=== PATIENT | female | born 1945 | race Caucasian/White ===

== ENCOUNTER → 2017-12-17 | Outpatient (CLI) | payer MEDICARE ==
[2017-12-17 13:06] LABS: HCT 41.3 % (34.0-46.0); HGB 13.5 gm/dL (11.4-16.0); MCH 28.2 pg (25.0-35.0); MCHC 32.6 g/dL (31.0-37.0); MCV 86.3 fL (80.0-100.0); Mean Platelet Volume 7.1; Platelet Count 217 k/uL (150-450); RBC 4.79 m/uL (3.80-5.40); RDW 15.8 % (11.5-15.5); WBC 9.4 k/uL (3.8-10.6)
[2017-12-17 13:12] LABS: Anion Gap 8 mmol/L; Blood Urea Nitrogen 14 mg/dL (7-17); Calcium 9.8 mg/dL (8.4-10.2); Carbon Dioxide 33 mmol/L (22-30); Chloride 100 mmol/L (98-107); Glucose 101 mg/dL (74-99); Sodium 141 mmol/L (137-145)
[2017-12-17 13:21] LABS: Potassium 4.4 mmol/L (3.5-5.1)
== END | disposition home or self-care (01) ==
LOC: LABWHC1 12:31
PROVIDERS: ATTEND Internal Medicine Clinical Cardiac Electrophysiology
DX: I47.1 Supraventricular tachycardia (principal)
CPT/HCPCS: 36415; 80048; 85027

== ENCOUNTER 2017-12-21 10:26 | Day surgery (SDC) | payer MEDICARE ==
[2017-12-17 16:16] VITALS: BMI 30.5
[2017-12-21] MEDS: SODIUM CHLORIDE 0.9% 1,000 ML IV SCH (11:00)
[2017-12-21] MEDS ORDERED: fentaNYL (PF) 50 MCG/ML 2 ML AMP ONE (11:35)
[2017-12-21] MEDS ORDERED: MIDAZOLAM 2 MG/2 ML VIAL ONE (11:35)
[2017-12-21] MEDS ORDERED: ISOPROTERENOL 250 MCG/1.25 ML SYR IV ONE (11:35)
[2017-12-21] MEDS ORDERED: PHENYLEPHRINE-0.9% NACL SYG 1 MG/10 ML SYRINGE ONE (11:35)
[2017-12-21] MEDS ORDERED: PROPOFOL 10 MG/ML 20 ML VIAL IV ONE (11:35)
[2017-12-21] MEDS ORDERED: GLYCOPYRROLATE 0.2 MG/ML 2 ML VIAL ONE (11:35)
[2017-12-21] MEDS ORDERED: LIDOCAINE 2% INJ 20 MG/ML SQ ONE (12:25)
[2017-12-21] MEDS ORDERED: LACTATED RINGERS 1,000 ML IV ONE (14:14)
[2017-12-21] MEDS ORDERED: HYDROcodone/APAP 5-325MG 1 EACH TAB PO PRN (14:21)
[2017-12-21] MEDS ORDERED: ACETAMINOPHEN TAB 325 MG TAB PO PRN (14:21)
[2017-12-21] MEDS: ACETAMINOPHEN IV (For NPO) 1,000 MG in EMPTY BAG 1 BAG IVPB ONE ×2 (15:11→17:18)
--- NOTE | 2017-12-21 15:50 | CE ---
CARDIAC ELECTROPHYSIOLOGY REPORT INDICATION FOR PROCEDURE: Recurrent palpitations, symptomatic, documented SVT. PROCEDURE: The patient is brought to the EP lab in a fasting state. Written informed consent was obtained prior to the procedure. The left shoulder area was prepped and draped as per protocol. 1% lidocaine was used for local anesthesia. Venous sheaths were placed in the right and left femoral veins and via these diagnostic catheters were positioned in the heart (high right atrial catheter, his bundle catheter, RV catheter and coronary sinus catheter). Baseline measurements were as follows: Sinus cycle length 900 milliseconds. UT interval 181 milliseconds, QRS 103 milliseconds, QT 457 milliseconds. AH interval 88 milliseconds, HV interval 35 milliseconds. Sinus node recovery times of 600, and 400 milliseconds were 1140 and 1194 milliseconds. Corresponding corrected sinus node recovery times were within normal limits. AV node Wenckebach block 490 milliseconds from the high right atrium and 500 milliseconds from the coronary sinus. VA Wenckebach block 420 milliseconds. Isuprel was started and thereafter SVT was very easily inducible. There was a short septal times noted and with ventricular pacing to entrainment tachycardia, VA AV response was noted with a long post pacing interval. 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 In addition, she had spontaneous episodes of AV krishna reentry that were induced by nonsustained runs of RVOT/VT. ventricular pacing was performed. Right bundle branch block aberrancy was also noted during tachycardia. Later when she was intubated and had further episodes of supraventricular tachycardia with catheter manipulation, her blood pressure dropped significantly. The rest of the procedure was performed under anesthesia because of snoring as well as sleep apnea and inability to maintain stable catheter position. A long sheath was placed and a 4 mm tip ablation catheter was used to map the right heart. The His cloud was tagged. The coronary sinus os was tagged. Slow pathway mapping was performed and RF ablation was performed just anterior to and just below the coronary sinus level. The 1st lesion resulted with the appearance of junctional rhythm. Good temperatures noted in the mid 60s. Following that, a bolus lesions applied but did not result in any further junctional rhythm except a lesion that was just about the origin of the first one. Following that, a full EP study was performed on and off Isuprel, 2 mics, 5 mics as well as wide open. There was no evidence for AV krishna reentry. No further induction of any runs of nonsustained RVOT/VT. The echo beats were noted. Single echo beats were noted. No sustained arrhythmias were noted. No nonsustained arrhythmias noted. Pacing was performed from the ventricle coronary sinus as well as from the high right atrium. At the end of the procedure, all catheters were removed. The patient was transferred back to telemetry. RESULT: Diagnostic EP study revealed AV krishna re-entry as a mechanism of tachycardia. SVT of the slow pathway ablation was performed successfully. 3D mapping was employed. RVOT/VT, nonsustained runs that initiated AV krishna reentry spontaneously also seen prior to ablation, but were not seen on high-dose Isuprel at the end of the procedure. PLAN: Continue metoprolol for now and continue monitor for any nonsustained ventricular tachycardia. MMODL / IJN: [id number] /
[2017-12-21] MEDS: LACTATED RINGERS 1,000 ML IV SCH (17:12)
[2017-12-21] MEDS ORDERED: METOPROLOL SUCCINATE (ER) 50 MG TAB.ER.24H PO SCH (21:00)
[2017-12-21] MEDS ORDERED: ATORVASTATIN 10 MG TAB PO SCH (21:00)
[2017-12-22] MEDS ORDERED: diphenhydrAMINE 50 MG/ML 1 ML VIAL IVP STA (03:48)
[2017-12-22] MEDS: SODIUM CHLORIDE 0.9% 1,000 ML IV SCH (04:55)
[2017-12-22] MEDS: LACTATED RINGERS 1,000 ML IV SCH (04:55)
[2017-12-22 07:57] VITALS: RESP 18
--- NOTE | 2017-12-22 08:28 | P.DS ---
Providers Attending physician: Ricardo Fabian Primary care physician: [facility] Course: Patient is lying comfortably in bed. She has a sore throat. 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 Guillen in 2 weeks Patient Condition at Discharge: Stable Plan - Discharge Summary Discharge Rx Participant: No New Discharge Prescriptions: New RX: Aspirin [Adult Low Dose Aspirin EC] 162 mg PO DAILY #90 tablet. Atorvastatin [Lipitor] 20 mg PO DAILY #90 tablet Lisinopril-Hctz 20-12.5 mg [Zestoretic 20-12.5] 2 tab PO DAILY #90 tab Discontinued Aspirin [Adult Low Dose Aspirin EC] 81 mg PO DAILY Enalapril [Vasotec] 10 mg PO HS Simvastatin [Zocor] 20 mg PO HS NIFEdipine XL [Procardia Xl] 30 mg PO HS Clopidogrel [Plavix] 75 mg PO PC-LUNCH No Action RX: Chromium Picolinate 800 mcg PO DAILY Acetaminophen [Tylenol Extra Strength] 500 mg PO DAILY Ubidecarenone [Co Q-10] 200 mg PO DAILY L.acidoph,Paracasei, B.lactis [Probiotic] 1 each PO BID Cinnamon Bark [Cinnamon] 1,000 mg PO BID Cholecalciferol [Vitamin D3] 3,000 unit PO DAILY Ascorbic Acid [Vitamin C] 500 mg PO BID RX: Alpha Lipoic Acid 600 mg PO DAILY Multivitamins, Thera [Multivitamin (formulary)] 1 tab PO DAILY Flaxseed Oil [Delia-3 Flaxseed Oil] 1,000 mg PO DAILY Calcium Citrate/Vitamin D3 [Calcitrate + Vit D Caplet] 1 each PO DAILY Delia-3/Dha/Epa/Fish Oil [Fish Oil 500 mg Softgel] 1 each PO DAILY Hydrocodone/Acetaminophen [Hydrocodon-Acetaminophn 10-325] 1 each PO TID Metoprolol Succinate [Toprol XL] 50 mg PO HS Enalapril/Hydrochlorothiazide [Vaseretic 10-25 mg] 1 each PO DAILY Gabapentin [Neurontin] 400 mg PO BID Lidocaine HCl [Aspercreme] 1 applic TOPICAL DAILY PRN PRN Reason: Pain Hyaluronic Acid 1 tab PO BID Benadryl (Unknown Dose) 1 - 2 tab PO DAILY PRN PRN Reason: seasonal allergies Glucosam/Clem-Msm1/C/Fareed/Bosw [Glucosamine-Chondroitin Tablet] 1 each PO BID Discharge Medication List Acetaminophen [Tylenol Extra Strength] 500 mg PO DAILY 12/17/17 [History] Ascorbic Acid [Vitamin C] 500 mg PO BID 12/17/17 [History] Benadryl (Unknown Dose) 1 - 2 tab PO DAILY PRN 12/17/17 [History] Calcium Citrate/Vitamin D3 [Calcitrate + Vit D Caplet] 1 each PO DAILY 12/17/17 [History] Cholecalciferol [Vitamin D3] 3,000 unit PO DAILY 12/17/17 [History] Cinnamon Bark [Cinnamon] 1,000 mg PO BID 12/17/17 [History] Enalapril/Hydrochlorothiazide [Vaseretic 10-25 mg] 1 each PO DAILY 12/17/17 [ History] Flaxseed Oil [Delia-3 Flaxseed Oil] 1,000 mg PO DAILY 12/17/17 [History] Gabapentin [Neurontin] 400 mg PO BID 12/17/17 [History] Glucosam/Clem-Msm1/C/Fareed/Bosw [Glucosamine-Chondroitin Tablet] 1 each PO BID [History] Hyaluronic Acid 1 tab PO BID 12/17/17 [History] Hydrocodone/Acetaminophen [Hydrocodon-Acetaminophn 10-325] 1 each PO TID [History] L.acidoph,Paracasei, B.lactis [Probiotic] 1 each PO BID 12/17/17 [History] Lidocaine HCl [Aspercreme] 1 applic TOPICAL DAILY PRN 12/17/17 [History] Metoprolol Succinate [Toprol XL] 50 mg PO HS 12/17/17 [History] Multivitamins, Thera [Multivitamin (formulary)] 1 tab PO DAILY 12/17/17 [History ] Delia-3/Dha/Epa/Fish Oil [Fish Oil 500 mg Softgel] 1 each PO DAILY 12/17/17 [ History] RX: Alpha Lipoic Acid 600 mg PO DAILY 12/17/17 [History] RX: Chromium Picolinate 800 mcg PO DAILY 12/17/17 [History] Ubidecarenone [Co Q-10] 200 mg PO DAILY 12/17/17 [History] Atorvastatin [Lipitor] 20 mg PO DAILY #90 tablet 12/21/17 [Rx] Lisinopril-Hctz 20-12.5 mg [Zestoretic 20-12.5] 2 tab PO DAILY #90 tab 12/21/17 [Rx] RX: Aspirin [Adult Low Dose Aspirin EC] 162 mg PO DAILY #90 tablet. 12/21/17 [ Rx] Follow up Appointment(s)/Referral(s): Ricardo Fabian MD [STAFF PHYSICIAN] - 2 Weeks Gerard Askew MD [Primary Care Provider] - 1 Week Activity/Diet/Wound Care/Special Instructions: Post EP study - Ablation instructions 1. Keep access sites dry for 2 days. 2. No heavy lifting or straining for 2 days. 3. Avoid bending the hips repeatedly for 2 days. 4. You may go up and down stairs slowly Call if the following is noted 1. Bleeding, increasing swelling or pain at the access sites. 2. Increasing chest discomfort, especially upon taking a deep breath. 3. Increasing shortness of breath, at rest or with exertion. 4. Undue cough / phlegm 5. Difficulty or pain while swallowing. 6. Pain or change in color in the extremities. 7. Fever, chills, rigors. 8. Increasing headache or neurologic symptoms. 9. Dizziness, fainting, palpitations Medications to BE discontinued Plavix Procardia XL Enalapril Enalapril and hydrochlorothiazide Simvastatin New medications instead of the above 2 baby aspirins a day, 81 mg each tablet, total 162 mg daily Lisinopril HCTZ 20/12.5 mg, take 2 tablets per day Atorvastatin 20 mg by mouth daily Discharge Disposition: HOME SELF-CARE
[2017-12-22] MEDS ORDERED: LISINOPRIL-HCTZ 20-12.5 MG 1 EACH TAB PO SCH (09:00)
[2017-12-22] MEDS ORDERED: ASPIRIN 81 MG PO SCH (09:00)
[2017-12-22 11:25] VITALS: BP 128/66; PULSE 70; TEMP 98.6
== END 2017-12-22 13:10 | disposition home or self-care (01) ==
LOC: CATHEP 10:26 → 3OBS 14:11 → CATHEP 12-22 13:10
PROVIDERS: ATTEND Internal Medicine Clinical Cardiac Electrophysiology
DX: I47.1 Supraventricular tachycardia (principal); I25.10 Atherosclerotic heart disease of native coronary artery without angina pectoris; I10 Essential (primary) hypertension; Z95.5 Presence of coronary angioplasty implant and graft; E78.5 Hyperlipidemia, unspecified; Z82.49 Family history of ischemic heart disease and other diseases of the circulatory system; G51.0 Bell's palsy; M79.7 Fibromyalgia; Z79.02 Long term (current) use of antithrombotics/antiplatelets; Z79.82 Long term (current) use of aspirin; Z79.899 Other long term (current) drug therapy; Z88.8 Allergy status to other drugs, medicaments and biological substances
CPT/HCPCS: 93623; 93613; 93653; C1894; C1769 ×2; C1730 ×2; C1732; C1893; J2001; J1200; J0131

== ENCOUNTER 2020-09-07 23:35 | Observation (INO) | payer MEDICARE ==
[2020-09-08 00:22] LABS: Basophils # (A) 0.1 k/uL (0-0.2); Basophils % (A) 1 %; Eosinophils # (A) 0.2 k/uL (0-0.7); Eosinophils % (A) 2 %; HCT 44.3 % (34.0-46.0); HGB 14.1 gm/dL (11.4-16.0); Lymphocytes # (A) 1.5 k/uL (1.0-4.8); Lymphocytes % (A) 12 %; MCH 26.7 pg (25.0-35.0); MCHC 31.7 g/dL (31.0-37.0); MCV 84.2 fL (80.0-100.0); Monocytes # (A) 0.8 k/uL (0-1.0); Monocytes % (A) 6 %; Neutrophils # (A) 9.7 k/uL (1.3-7.7); Neutrophils % (A) 78 %; Platelet Count 217 k/uL (150-450); RBC 5.27 m/uL (3.80-5.40); RDW 14.7 % (11.5-15.5); WBC 12.5 k/uL (3.8-10.6)
--- NOTE | 2020-09-08 00:27 | ED ---
Chest Pain HPI - General Chief Complaint: Chest Pain Stated Complaint: chest pain Time Seen by Provider: 09/07/20 23:36 Source: patient, EMS Mode of arrival: EMS Limitations: no limitations - History of Present Illness Initial Comments: This patient is a 74-year-old woman who presents to be evaluated for substernal chest pain that started tonight after a Halloween event. Patient states that when the pain did not improve she felt she should be evaluated here. She does have history of previous stent placement in 2005 and then she had an ablation performed last year. Patient denies anginal type symptoms, including no diaphoresis, dyspnea, nausea or vomiting. MD Complaint: chest pain -: hour(s) Onset: during rest Pain Location: substernal Pain Radiation: none Severity: moderate Quality: aching Consistency: constant Improves With: nothing Worsens With: nothing Treatments Prior to Arrival: none - Related Data Home Medications Medication Instructions Recorded Confirmed Acetaminophen [Tylenol Extra 500 mg PO TID 12/17/17 09/08/20 Strength] Ascorbic Acid [Vitamin C] 500 mg PO BID 12/17/17 09/08/20 Cholecalciferol [Vitamin D3 (25 1,000 unit PO BID 12/17/17 09/08/20 Mcg = 1000 Iu)] Cinnamon Bark [Cinnamon] 500 mg PO BID 12/17/17 09/08/20 Flaxseed Oil [[place]-3 Flaxseed Oil] 1,000 mg PO DAILY 12/17/17 09/08/20 Hydrocodone/Acetaminophen 1 tab PO QID 12/17/17 09/08/20 [Hydrocodone/Acetaminophen 10-325] L.acidoph,Paracasei, B.lactis 1 cap PO BID 12/17/17 09/08/20 [Probiotic] Metoprolol Succinate [Toprol XL] 50 mg PO DAILY 12/17/17 09/08/20 Multivitamins, Thera [Multivitamin 1 tab PO DAILY 12/17/17 09/08/20 (formulary)] [place]-3/Dha/Epa/Fish Oil [Fish Oil 1 cap PO DAILY 12/17/17 09/08/20 500 mg Softgel] Ubidecarenone [Co Q-10] 200 mg PO DAILY 12/17/17 09/08/20 Aspirin [Adult Low Dose Aspirin EC] 81 mg PO BID 09/08/20 09/08/20 Cyclobenzaprine [Flexeril] 10 mg PO HS 09/08/20 09/08/20 DULoxetine HCL [Cymbalta] 20 mg PO BID 09/08/20 09/08/20 Gabapentin 600 mg PO TID 09/08/20 09/08/20 Hydroxychloroquine Sulfate 200 mg PO BID 09/08/20 09/08/20 [Plaquenil] Trolamine Salicylate/Aloe Vera 1 applic TOPICAL DAILY PRN 09/08/20 09/08/20 [Aspercreme 10% Cream] diphenhydrAMINE [Benadryl] 25 - 50 mg PO HS PRN 09/08/20 09/08/20 Previous Rx's Medication Instructions Recorded Atorvastatin [Lipitor] 40 mg PO HS #30 tab 09/10/20 lisinopriL [Zestril] 5 mg PO HS #30 tab 09/10/20 Allergies Allergy/AdvReac Type Severity Reaction Status Date / Time adhesive tape Allergy Rash/Hives Verified 09/08/20 08:21 cilostazol [From Pletal] Allergy heart Verified 09/08/20 08:21 pounding etodolac Allergy Rash/Hives, Verified 09/08/20 08:21 leg and foot swelling omeprazole [From Prilosec] Allergy mouth sores Verified 09/08/20 08:21 temazepam [From Restoril] Allergy mouth sores Verified 09/08/20 08:21 bentyl dicyclomine Allergy confusion Uncoded 09/07/20 23:46 and balance Review of Systems ROS Statement: Those systems with pertinent positive or pertinent negative responses have been documented in the HPI. ROS Other: All systems not noted in ROS Statement are negative. Constitutional: Denies: fever, chills Respiratory: Denies: cough, dyspnea Cardiovascular: Reports: as per HPI, chest pain. Denies: palpitations, orthopnea, edema, syncope Gastrointestinal: Denies: abdominal pain, nausea, vomiting, diarrhea Genitourinary: Denies: dysuria, hematuria Musculoskeletal: Denies: back pain Skin: Denies: rash Neurological: Denies: headache, weakness, numbness EKG Findings - EKG Comments: EKG Findings:: Possible old septal infarct. - EKG Results: EKG: sinus rhythm (Rate 100 bpm) - Blocks, [place], Hypertrophy, ST Abn: QRS axis and voltage: left axis deviation (-30 to -90) Chamber hypertrophy or enlargement: left ventricular hypertrophy or enlargement (LVE) Past Medical History Past Medical History: Hypertension, Myocardial Infarction ([place]) Additional Past Medical History / Comment(s): melanoma. hypercholestremia. kidney stones. ablation. Lupus erythematosus. restless leg syndrome. Diverticulitis. ovarian cysts. History of Any Multi-Drug Resistant Organisms: None Reported Past Surgical History: Heart Catheterization With Stent, Hysterectomy, Orthopedic Surgery Additional Past Surgical History / Comment(s): colonoscopy Past Psychological History: No Psychological Hx Reported Smoking Status: Never smoker Past Alcohol Use History: None Reported Past Drug Use History: None Reported General Exam Limitations: no limitations General appearance: alert, in no apparent distress Head exam: Present: atraumatic, normocephalic Eye exam: Present: normal appearance. Absent: scleral icterus, conjunctival injection ENT exam: Present: normal oropharynx Neck exam: Present: normal inspection Respiratory exam: Present: normal lung sounds bilaterally. Absent: respiratory distress, wheezes, rales, rhonchi, stridor Cardiovascular Exam: Present: regular rate, normal rhythm, normal heart sounds. Absent: systolic murmur, diastolic murmur, rubs, gallop GI/Abdominal exam: Present: soft. Absent: distended, tenderness, guarding, rebound, rigid, mass Extremities exam: Present: normal inspection, normal capillary refill. Absent: pedal edema, calf tenderness Back exam: Present: normal inspection. Absent: CVA tenderness (R), CVA tenderness (L) Neurological exam: Present: alert Skin exam: Present: warm, dry, intact, normal color Course Vital Signs 09/07/20 09/07/20 09/08/20 23:37 23:40 01:00 Temperature 98.2 F Pulse Rate 107 H 93 Pulse Rate [ 105 H [place] Man ] Respiratory 20 19 Rate Blood Pressure 134/90 128/84 O2 Sat by Pulse 96 96 Oximetry 09/08/20 09/08/20 02:00 03:07 Temperature 98.1 F Pulse Rate 91 91 Pulse Rate [ [place] Man ] Respiratory 19 19 Rate Blood Pressure 130/84 126/83 O2 Sat by Pulse 96 95 Oximetry Critical Care Time Critical Care Time: Yes (35 minutes) Disposition Clinical Impression: Chest pain, Elevated troponin I level Disposition: ADMITTED IP TO THIS HOSP Condition: Stable
[2020-09-08 00:32] LABS: Albumin 4.3 g/dL (3.5-5.0); Calcium 9.5 mg/dL (8.4-10.2); Magnesium 1.8 mg/dL (1.6-2.3); Potassium 4.1 mmol/L (3.5-5.1); Total Bilirubin 0.5 mg/dL (0.2-1.3); Total Protein 6.9 g/dL (6.3-8.2)
[2020-09-08 00:38] LABS: D-Dimer 0.49 mg/L FEU (<0.60); Partial Thromboplastin Time 24.3 sec (22.0-30.0)
--- NOTE | 2020-09-08 00:40 | XR ---
EXAM: XR Chest, 2 Views CLINICAL HISTORY: ITS.REASON XR Reason: Chest Pain TECHNIQUE: Frontal and lateral views of the chest. COMPARISON: None. FINDINGS: Lungs: Hyperexpanded lungs with flattened hemidiaphragms suggestive of COPD. Pleural space: Unremarkable. No pneumothorax. Heart: Unremarkable. No cardiomegaly. Mediastinum: Unremarkable. Bones/joints: Dextroscoliosis of the thoracic spine. Severe degenerative change in the thoracic spine. Vasculature: Atherosclerotic calcification of the thoracic aorta. IMPRESSION: 1. No acute cardiopulmonary abnormality. 2. Hyperexpanded lungs with flattened hemidiaphragms suggestive of COPD.
[2020-09-08] MEDS ORDERED: HEPARIN SODIUM,PORCINE 5,000 UNIT/ML 1 ML VIAL IV ONE (01:22)
[2020-09-08] MEDS ORDERED: HEPARIN SODIUM,PORCINE 5,000 UNIT/ML 1 ML VIAL IV PRN (01:22)
[2020-09-08] MEDS ORDERED: ASPIRIN 81 MG PO STA (01:38)
[2020-09-08] MEDS ORDERED: HYDROmorphone 0.5 MG/0.5 ML SYRINGE IVP STA ×2 (01:40→10:05)
[2020-09-08] MEDS ORDERED: METOPROLOL TARTRATE 12.5 MG TAB PO STA (01:54)
[2020-09-08 02:04] LABS: Basophils # (A) 0.1 k/uL (0-0.2); Basophils % (A) 1 %; Eosinophils # (A) 0.2 k/uL (0-0.7); Eosinophils % (A) 2 %; HCT 41.8 % (34.0-46.0); HGB 13.5 gm/dL (11.4-16.0); Lymphocytes # (A) 1.5 k/uL (1.0-4.8); Lymphocytes % (A) 14 %; MCH 27.2 pg (25.0-35.0); MCHC 32.2 g/dL (31.0-37.0); MCV 84.3 fL (80.0-100.0); Mean Platelet Volume 7.3; Monocytes # (A) 0.7 k/uL (0-1.0); Monocytes % (A) 7 %; Neutrophils # (A) 7.6 k/uL (1.3-7.7); Neutrophils % (A) 74 %; Platelet Count 187 k/uL (150-450); RBC 4.96 m/uL (3.80-5.40); RDW 14.7 % (11.5-15.5); WBC 10.2 k/uL (3.8-10.6)
[2020-09-08 02:16] LABS: Partial Thromboplastin Time 24.6 sec (22.0-30.0); Prothrombin Time 10.5 sec (9.0-12.0)
[2020-09-08] MEDS: HEPARIN SOD,PORK IN 0.45% NACL 25,000 UNIT in 0.45% NACL 1 250ML.BAG IV SCH (02:34)
[2020-09-08] MEDS: SODIUM CHLORIDE 0.9% 1,000 ML IV SCH ×4 (02:39→22:43)
[2020-09-08] MEDS ORDERED: ACETAMINOPHEN TAB 325 MG TAB PO PRN (02:57)
[2020-09-08] MEDS: HYDROcodone/APAP 10-325MG 1 EACH TAB PO PRN ×2 (05:58→15:17)
[2020-09-08] MEDS: NITROGLYCERIN SL TABS 0.4 MG TAB SUBLINGUAL PRN ×5 (06:47→10:00)
[2020-09-08] MEDS ORDERED: ACETAMINOPHEN TAB 500 MG TAB PO SCH (09:00)
[2020-09-08] MEDS ORDERED: HYDROCHLOROTHIAZIDE PO SCH (09:00)
[2020-09-08] MEDS ORDERED: ATORVASTATIN 20 MG TAB PO SCH (09:00)
[2020-09-08] MEDS ORDERED: NON FORMULARY DRUG (Ubidecarenone [Co Q-10] 100 MG Capsule) PO SCH (09:00)
[2020-09-08] MEDS ORDERED: LISINOPRIL-HCTZ 20-12.5 MG 1 EACH TAB PO SCH (09:00)
[2020-09-08] MEDS ORDERED: ENALAPRIL PO SCH (09:00)
[2020-09-08] MEDS ORDERED: GABAPENTIN 400 MG CAP PO SCH (09:00)
[2020-09-08] MEDS: MULTIVITAMINS, THERA 1 EACH TAB PO SCH (09:44)
[2020-09-08] MEDS: CALCIUM CARB-VIT D 500MG-200UN 1 EACH TAB PO SCH (09:44)
[2020-09-08] MEDS ORDERED: ONDANSETRON 4 MG/2 ML VIAL IVP PRN (10:06)
[2020-09-08] MEDS ORDERED: ONDANSETRON 4 MG/2 ML VIAL ONE (10:08)
[2020-09-08] MEDS ORDERED: ALPRAZolam 0.5 MG TAB PO PRN (10:10)
[2020-09-08] MEDS ORDERED: ALPRAZolam 0.25 MG TAB PO PRN (10:10)
[2020-09-08] MEDS ORDERED: NITROGLYCERIN SL TABS 0.4 MG TAB SUBLINGUAL PRN (10:10)
[2020-09-08] MEDS ORDERED: ASPIRIN 325 MG TAB PO STA (10:10)
[2020-09-08] MEDS ORDERED: ATORVASTATIN 80 MG TAB PO STA (10:10)
[2020-09-08] MEDS ORDERED: SODIUM CHLORIDE 0.9% 1,000 ML in EMPTY BAG 1 BAG IV ONE (10:10)
--- NOTE | 2020-09-08 10:35 | P.CRDCN ---
History of Present Illness Consult date: 09/08/20 Reason for Consult (text): Mid-sternal chest pain Consult reason: chest pain Chief complaint: Chest Pain History of present illness: HISTORY OF PRESENT ILLNESS AND PLAN: This is a 74-year-old female with history of obesity, lifelong second hand smoke exposure, bilateral total knee replacements, RIGHT arms surgery, kidney stones, ovarian cyst, melanoma, fibro-myalgia, lupus, hypertension, hyperlipidemia, MA, CAD status post PCI to left circumflex in 01/05/2006 and ablation for /SVT with Dr. Fabian in in 12/2017. Patient presents to ER with complaints of mid-sternal chest pain/pressure 05/24, after she has been out with her family for trunk or treat Halloween activities. Upon return home while driving patient states midsternal chest pressure started and continued overnight into this morning during a.m. examination. Pt current chest pain level 3/10. Troponin levels elevated x3 at 1.260, 1.890 and 2.610. Patient follows with Dr. Fabian in in office. EKG shows sinus rhythm/sinus tachycardia with LVH, heart rate 100. Vital signs stable. Patient states 98% on 2 L NC. Patient is completely alert and oriented and in no acute distress. Patient does have history of left circumflex PCI in 01/05/2006 at [facility], patient continues to carry PCI/stenting card. Patient has no smoking history. No diabetes. Pt did have lifelong second hand smoke exposure living with and daughter who smoke. IV heparin continues. Pt remains NPO. SIGNIFICANT PAST MEDICAL HISTORY: Obesity, second hand smoke exposure, bilateral knee replacements, kidney stones, ovarian cyst, melanoma, fibromyalgia, lupus, hypertension, hyperlipidemia, CAD status post PCI to left circumflex in 01/05/2006 and ablation for SVT with Dr. Fabian in in 12/2017. PAST SURGICAL HISTORY: See list. EKG = SR/ST with LVH, HR 100. Troponins positive x 3 - 1.260, 1.890, 2.610 SIGNIFICANT LABORATORY VALUES: BUN 18, CR 0.84 Chest x-ray 09/08/2020 = No acute process. COPD. Most recent echo = None recently. Most recent stress testing = None recently. REVIEW OF SYSTEMS: CONSTITUTIONAL: Denies fever. Denies chills. EYES: Denies blurred vision. Denies blurred vision or vision changes. Denies eye pain. EARS, NOSE, MOUTH & THROAT: Denies headache. Denies sore throat. Denies ear pain Denies hemoptysis. CARDIOVASCULAR: Complains of constant aching midsternal chest pain with associated shortness of breath. Denies orthopnea. Denies PND. Denies palpitation s. RESPIRATORY: Denies cough. Denies shortness of breath. GASTROINTESTINAL: Denies abdominal pain or distention. Denies diarrhea. Denies constipation. Denies nausea. Denies vomiting. MUSCULOSKELETAL: Complains of myalgias. INTEGUMENTARY: Denies pruitis. Denies rash. ENDOCRINE: Complains of fatigue. Denies weight change. Denies polydipsia. Denies polyurina Denies heat/cold intolerance. GENITOURINARY: Denies burning, hematuria or urgency with micturation. HEMATOLOGIC: Denies history of anemia. Denies bleeding. NEUROLOGIC: Denies numbness. Denies tingling. Denies weakness. PSYCHIATRIC: Denies anxiety. Denies depression. PHYSICAL EXAM: GENERAL: Obese, well developed, no acute distress. HEENT: Head is atraumatic, normocephalic. Pupils are equal, round. Extra ocular movements intact. Mucous membranes moist. Neck supple. No JVD. No carotid bruit. No thyromegaly. LUNGS: Clear to auscultation. No wheezes, rales or rhonchi. No chest wall tenderness on palpation or with deep breathing. HEART: Regular rate and rhythm, no rubs or gallops. S1 and S2 heard. No murmur. ABDOMEN: Abdominal exam, WNL. Bowel sounds x4 quads. Soft, non-tender, without masses, organomegaly, or abdominal aorta enlargement. EXTREMITIES/VASCULAR: Extremities have easily palpable radial, femoral, dorsalis pedis and posterior tibial pulses. No cyanosis, calf tenderness. No BLE edema. NEUROLOGIC: Patient is awake, alert and oriented x3. No focal neurologic abnormalities. FINAL IMPRESSION: 1. Chest pain 2. Elevated Troponin 3. CAD s/p PCI to LCX 01/05/2006 4. HTN 5. Hyperlipdemia PLAN: Pt to remain NPO. Patient to LEFT heart cath vie RIGHT radial approach this AM. Pt explained all benefits, risks, options and rationale for the procedure. Pt agrees to proceed. Cautious IV fluid administration and blood pressure control advised. Nurse Practitioner note has been reviewed by the Physician. Signing provider agrees with the documented findings, assessment and plan of care. Past Medical History Past Medical History: Hypertension, Myocardial Infarction (MA) Additional Past Medical History / Comment(s): melanoma. hypercholestremia. kidney stones. ablation. Lupus erythematosus. restless leg syndrome. Diverticulitis. ovarian cysts. Last Myocardial Infarction Date:: 2005 History of Any Multi-Drug Resistant Organisms: None Reported Past Surgical History: Heart Catheterization With Stent, Hysterectomy, Orthopedic Surgery Additional Past Surgical History / Comment(s): colonoscopy Date of Last Stent Placement:: 2005 Past Psychological History: No Psychological Hx Reported Smoking Status: Never smoker Past Alcohol Use History: None Reported Past Drug Use History: None Reported Medications and Allergies Home Medications Medication Instructions Recorded Confirmed Type Acetaminophen [Tylenol Extra 500 mg PO TID 12/17/17 09/08/20 History Strength] Ascorbic Acid [Vitamin C] 500 mg PO BID 12/17/17 09/08/20 History Cholecalciferol [Vitamin D3] 1,000 unit PO BID 12/17/17 09/08/20 History Cinnamon Bark [Cinnamon] 500 mg PO BID 12/17/17 09/08/20 History Flaxseed Oil [[place]-3 Flaxseed Oil] 1,000 mg PO DAILY 12/17/17 09/08/20 History Hydrocodone/Acetaminophen 1 tab PO QID 12/17/17 09/08/20 History [Hydrocodon-Acetaminophn 10-325] L.acidoph,Paracasei, B.lactis 1 cap PO BID 12/17/17 09/08/20 History [Probiotic] Metoprolol Succinate [Toprol XL] 50 mg PO DAILY 12/17/17 09/08/20 History Multivitamins, Thera [Multivitamin 1 tab PO DAILY 12/17/17 09/08/20 History (formulary)] [place]-3/Dha/Epa/Fish Oil [Fish Oil 1 cap PO DAILY 12/17/17 09/08/20 History 500 mg Softgel] Ubidecarenone [Co Q-10] 200 mg PO DAILY 12/17/17 09/08/20 History Aspirin [Adult Low Dose Aspirin EC] 81 mg PO BID 09/08/20 09/08/20 History Atorvastatin [Lipitor] 20 mg PO HS 09/08/20 09/08/20 History Cyclobenzaprine [Flexeril] 10 mg PO HS 09/08/20 09/08/20 History DULoxetine HCL [Cymbalta] 20 mg PO BID 09/08/20 09/08/20 History Gabapentin 600 mg PO TID 09/08/20 09/08/20 History Hydroxychloroquine Sulfate 200 mg PO BID 09/08/20 09/08/20 History [Plaquenil] Irbesartan 300 mg PO DAILY 09/08/20 09/08/20 History Triamterene-Hctz 37.5-25Mg 1 cap PO DAILY 09/08/20 09/08/20 History [Dyazide 37.5-25 Capsule] Trolamine Salicylate/Aloe Vera 1 applic TOPICAL DAILY PRN 09/08/20 09/08/20 History [Aspercreme 10% Cream] diphenhydrAMINE [Benadryl] 25 - 50 mg PO HS PRN 09/08/20 09/08/20 History Allergies Allergy/AdvReac Type Severity Reaction Status Date / Time adhesive tape Allergy Rash/Hives Verified 09/08/20 08:21 cilostazol [From Pletal] Allergy heart Verified 09/08/20 08:21 pounding etodolac Allergy Rash/Hives, Verified 09/08/20 08:21 leg and foot swelling omeprazole [From Prilosec] Allergy mouth sores Verified 09/08/20 08:21 temazepam [From Restoril] Allergy mouth sores Verified 09/08/20 08:21 bentyl dicyclomine Allergy confusion Uncoded 09/07/20 23:46 and balance Physical Exam Vitals: Vital Signs Temp Pulse Pulse Resp BP BP Pulse Ox 09/08/20 06:59 88 113/67 95 09/08/20 06:52 89 18 114/65 94 L 09/08/20 06:48 87 18 118/71 94 L 09/08/20 04:53 98.4 F 99 18 133/82 97 09/08/20 03:27 98.4 F 99 18 133/82 97 09/08/20 03:07 98.1 F 91 19 126/83 95 09/08/20 02:00 91 19 130/84 96 09/08/20 01:00 93 19 128/84 96 10/24/20 23:40 105 H 09/07/20 23:37 98.2 F 107 H 20 134/90 96 Intake and Output 09/07/20 09/08/20 09/08/20 22:59 06:59 14:59 Intake Total 560 Balance 560 Intake: Intake, IV Titration 440 Amount Heparin Sod,Pork in 0.45% 40 NaCl 25,000 unit In 0.45 % NaCl 1 250ml.bag @ 10. 599 UNITS/KG/HR 10 mls/hr IV .Q24H [facility] Rx#: [id number] Sodium Chloride 0.9% 1, 400 000 ml @ 100 mls/hr IV . Q10H [facility] Rx#:[id number] Oral 120 Other: # Voids 1 1 Weight 95.9 kg Results 09/08/20 01:56 09/08/20 00:12 Cardiac Enzymes 09/08/20 09/08/20 09/08/20 Range/Units 00:12 00:12 01:56 AST 35 (14-36) U/L Troponin I 1.260 H* 1.890 H* (0.000-0.034) ng/mL 09/08/20 Range/Units 06:31 AST (14-36) U/L Troponin I 2.610 H* (0.000-0.034) ng/mL Coagulation 09/08/20 09/08/20 09/08/20 Range/Units 00:12 01:56 06:31 PT 10.0 10.5 (9.0-12.0) sec APTT 24.3 24.6 55.1 H (22.0-30.0) sec CBC 09/08/20 09/08/20 Range/Units 00:12 01:56 WBC 12.5 H 10.2 (3.8-10.6) k/uL RBC 5.27 4.96 (3.80-5.40) m/uL Hgb 14.1 13.5 (11.4-16.0) gm/dL Hct 44.3 41.8 (34.0-46.0) % Plt Count 217 187 (150-450) k/uL Comprehensive Metabolic Panel 09/08/20 Range/Units 00:12 Sodium 138 (137-145) mmol/L Potassium 4.1 (3.5-5.1) mmol/L Chloride 103 (98-107) mmol/L Carbon Dioxide 26 (22-30) mmol/L BUN 18 H (7-17) mg/dL Creatinine 0.84 (0.52-1.04) mg/dL Glucose 124 H (74-99) mg/dL Calcium 9.5 (8.4-10.2) mg/dL AST 35 (14-36) U/L ALT 19 (4-34) U/L Alkaline Phosphatase 98 (38-126) U/L Total Protein 6.9 (6.3-8.2) g/dL Albumin 4.3 (3.5-5.0) g/dL Current Medications Generic Name Dose Route Start Last Admin Trade Name Freq PRN Reason Stop Dose Admin Acetaminophen 650 mg 09/08/20 02:57 Acetaminophen Tab 325 Mg Tab PO Q6H PRN Mild Pain Hydrocodone Bitart/Acetaminophen 1 each 09/08/20 09:00 09/08/20 05:58 Hydrocodone/Apap 10-325mg 1 Each Tab PO 1 each TID PRN Administration Moderate to Severe Pain Aspirin 325 mg 09/09/20 09:00 Aspirin 325 Mg Tab PO DAILY [facility] Atorvastatin Calcium 20 mg 09/08/20 09:00 Atorvastatin 20 Mg Tab PO DAILY [facility] Calcium Carbonate 1 each 09/08/20 09:00 Calcium Carb-Vit D 500mg-200un 1 Each Tab PO DAILY [facility] Gabapentin 400 mg 09/08/20 09:00 Gabapentin 400 Mg Cap PO BID [facility] Lisinopril/HCTZ 2 each 09/08/20 09:00 Lisinopril-Hctz 20-12.5 Mg 1 Each Tab PO DAILY [facility] Heparin Sodium (Porcine) 0 unit 09/08/20 01:22 Heparin Sodium,Porcine 5,000 Unit/Ml 1 Ml Vial IV PER PROTOCOL PRN Low PTT Protocol Heparin Sodium/Sodium Chloride 250 mls @ 10 mls/hr 09/08/20 01:30 09/08/20 02:34 25,000 unit/ Sodium Chloride IV 10.599 units/kg/hr .Q24H [facility] 10 mls/hr Administration Protocol 10.599 UNITS/KG/HR Sodium Chloride 1,000 mls @ 100 mls/hr 09/08/20 02:00 09/08/20 02:39 Saline 0.9% IV 100 mls/hr .Q10H [facility] Administration Metoprolol Succinate 50 mg 09/08/20 21:00 Metoprolol Succinate (Er) 50 Mg Tab.Er.24h PO HS [facility] Multivitamins 1 each 09/08/20 09:00 Multivitamins, Thera 1 Each Tab PO DAILY [facility] Nitroglycerin 0.4 mg 09/08/20 01:51 09/08/20 06:54 Nitroglycerin Sl Tabs 0.4 Mg Tab SUBLINGUAL 0.4 mg Q5M PRN Administration Chest Pain Intake and Output 09/07/20 09/08/20 09/08/20 22:59 06:59 14:59 Intake Total 560 Balance 560 Intake: Intake, IV Titration 440 Amount Heparin Sod,Pork in 0.45% 40 NaCl 25,000 unit In 0.45 % NaCl 1 250ml.bag @ 10. 599 UNITS/KG/HR 10 mls/hr IV .Q24H [facility] Rx#: [id number] Sodium Chloride 0.9% 1, 400 000 ml @ 100 mls/hr IV . Q10H [facility] Rx#:[id number] Oral 120 Other: # Voids 1 1 Weight 95.9 kg 09/08/20 01:56 09/08/20 00:12 - EKG Interpretation EKG: sinus rhythm EKG Interpretations (text) SR
[2020-09-08] MEDS ORDERED: HEPARIN SODIUM 1,000 UN/ML (10ML VL) ONE (10:55)
[2020-09-08] MEDS ORDERED: LIDOCAINE 1% INJ 10MG/ML (20 ML MDV) ONE (10:55)
[2020-09-08] MEDS ORDERED: VERAPAMIL 2.5 MG/ML 2 ML AMP ONE (10:55)
[2020-09-08] MEDS ORDERED: MIDAZOLAM 2 MG/2 ML VIAL IV ONE (11:18)
[2020-09-08] MEDS ORDERED: LIDOCAINE 1% INJ 10MG/ML (20 ML MDV) SQ ONE (11:21)
[2020-09-08] MEDS ORDERED: IV FLUID CONTINUATION 500 ML IV ONE ×2 (11:22)
[2020-09-08] MEDS ORDERED: VERAPAMIL SYRINGE (5 MG/10 ML) INTRAARTER ONE (11:23)
[2020-09-08] MEDS ORDERED: FUROSEMIDE 10 MG/ML 4 ML VIAL ONE (11:29)
[2020-09-08] MEDS: FUROSEMIDE 10 MG/ML 4 ML VIAL IV ONE ×2 (11:30→12:36)
[2020-09-08] MEDS ORDERED: SODIUM CHLORIDE 0.9% 500 ML 500 ML IV ONE (11:36)
[2020-09-08] MEDS ORDERED: IOPAMIDOL-370 100ML BTL INJ ONE ×3 (11:38→12:29)
[2020-09-08] MEDS ORDERED: BIVALIRUDIN BOLUS 250 MG/50 ML IV ONE (11:47)
[2020-09-08] MEDS ORDERED: BIVALIRUDIN 250 MG in SODIUM CHLORIDE 0.9% 50 ML IV ONE (11:48)
[2020-09-08] MEDS: NITROGLYCERIN 1000MCG/10ML SYRINGE INTRACORON ONE ×2 (12:08→12:23)
[2020-09-08] MEDS ORDERED: ADENOSINE 90 MG in SODIUM CHLORIDE 0.9% 60 ML IVP ONE (12:18)
[2020-09-08] MEDS ORDERED: diphenhydrAMINE 25 MG CAP PO PRN (13:54)
--- NOTE | 2020-09-08 14:00 | P.HPIM ---
History of Present Illness Patient was [id number] the female came in with complaints of chest pain patient did have a history of coronary artery disease. Patient did have elevated troponins of 1.26, 1.89, 2.6 and patient was complaining of chest pain again today morning because of which patient was taken to [facility] and they patient underwent cardiac catheterization which did not show any occlusive disease patient had clean coronaries but had a very low ejection fraction and the stress-induced cardiomyopathy. Questioning patient admits to having a lot of stress with the demise of her 4 years ago and her son recently. Patient is on antidepressants. Patient was having shortness of breath as well. Review of Systems REVIEW OF SYSTEMS: CONSTITUTIONAL: No fever, no malaise, no fatigue. HEENT: No recent visual problems or hearing problems. Denied any sore throat. CARDIOVASCULAR: No orthopnea, PND, no palpitations, no syncope. PULMONARY: no cough, no hemoptysis. GASTROINTESTINAL: No diarrhea, no nausea, no vomiting, no abdominal pain. NEUROLOGICAL: No headaches, no weakness, no numbness. HEMATOLOGICAL: Denies any bleeding or petechiae. GENITOURINARY: Denies any burning micturition, frequency, or urgency. MUSCULOSKELETAL/RHEUMATOLOGICAL: Denies any joint pain, swelling, or any muscle pain. ENDOCRINE: Denies any polyuria or polydipsia. The rest of the 14-point review of systems is negative. Past Medical History Past Medical History: Hypertension, Myocardial Infarction (SD) Additional Past Medical History / Comment(s): melanoma. hypercholestremia. kidney stones. ablation. Lupus erythematosus. restless leg syndrome. Diverticulitis. ovarian cysts. Last Myocardial Infarction Date:: 2005 History of Any Multi-Drug Resistant Organisms: None Reported Past Surgical History: Heart Catheterization With Stent, Hysterectomy, Orthopedic Surgery Additional Past Surgical History / Comment(s): colonoscopy Date of Last Stent Placement:: 2005 Past Psychological History: No Psychological Hx Reported Smoking Status: Never smoker Past Alcohol Use History: None Reported Past Drug Use History: None Reported Medications and Allergies Home Medications Medication Instructions Recorded Confirmed Type Acetaminophen [Tylenol Extra 500 mg PO TID 12/17/17 09/08/20 History Strength] Ascorbic Acid [Vitamin C] 500 mg PO BID 12/17/17 09/08/20 History Cholecalciferol [Vitamin D3] 1,000 unit PO BID 12/17/17 09/08/20 History Cinnamon Bark [Cinnamon] 500 mg PO BID 12/17/17 09/08/20 History Flaxseed Oil [[place]-3 Flaxseed Oil] 1,000 mg PO DAILY 12/17/17 09/08/20 History Hydrocodone/Acetaminophen 1 tab PO QID 12/17/17 09/08/20 History [Hydrocodon-Acetaminophn 10-325] L.acidoph,Paracasei, B.lactis 1 cap PO BID 12/17/17 09/08/20 History [Probiotic] Metoprolol Succinate [Toprol XL] 50 mg PO DAILY 12/17/17 09/08/20 History Multivitamins, Thera [Multivitamin 1 tab PO DAILY 12/17/17 09/08/20 History (formulary)] [place]-3/Dha/Epa/Fish Oil [Fish Oil 1 cap PO DAILY 12/17/17 09/08/20 History 500 mg Softgel] Ubidecarenone [Co Q-10] 200 mg PO DAILY 12/17/17 09/08/20 History Aspirin [Adult Low Dose Aspirin EC] 81 mg PO BID 09/08/20 09/08/20 History Atorvastatin [Lipitor] 20 mg PO HS 09/08/20 09/08/20 History Cyclobenzaprine [Flexeril] 10 mg PO HS 09/08/20 09/08/20 History DULoxetine HCL [Cymbalta] 20 mg PO BID 09/08/20 09/08/20 History Gabapentin 600 mg PO TID 09/08/20 09/08/20 History Hydroxychloroquine Sulfate 200 mg PO BID 09/08/20 09/08/20 History [Plaquenil] Irbesartan 300 mg PO DAILY 09/08/20 09/08/20 History Triamterene-Hctz 37.5-25Mg 1 cap PO DAILY 09/08/20 09/08/20 History [Dyazide 37.5-25 Capsule] Trolamine Salicylate/Aloe Vera 1 applic TOPICAL DAILY PRN 09/08/20 09/08/20 History [Aspercreme 10% Cream] diphenhydrAMINE [Benadryl] 25 - 50 mg PO HS PRN 09/08/20 09/08/20 History Allergies Allergy/AdvReac Type Severity Reaction Status Date / Time adhesive tape Allergy Rash/Hives Verified 09/08/20 08:21 cilostazol [From Pletal] Allergy heart Verified 09/08/20 08:21 pounding etodolac Allergy Rash/Hives, Verified 09/08/20 08:21 leg and foot swelling omeprazole [From Prilosec] Allergy mouth sores Verified 09/08/20 08:21 temazepam [From Restoril] Allergy mouth sores Verified 09/08/20 08:21 bentyl dicyclomine Allergy confusion Uncoded 09/07/20 23:46 and balance Physical Exam Vitals: Vital Signs Temp Pulse Pulse Pulse Resp BP BP 09/08/20 13:26 93 18 112/72 09/08/20 13:11 93 18 115/75 09/08/20 08:00 98.1 F 98 24 132/76 09/08/20 06:59 88 113/67 09/08/20 06:52 89 18 114/65 09/08/20 06:48 87 18 118/71 09/08/20 04:53 98.4 F 99 18 133/82 09/08/20 03:27 98.4 F 99 18 133/82 09/08/20 03:07 98.1 F 91 19 126/83 09/08/20 02:00 91 19 130/84 09/08/20 01:00 93 19 128/84 09/07/20 23:40 105 H 09/07/20 23:37 98.2 F 107 H 20 134/90 Pulse Ox 09/08/20 13:26 93 L 09/08/20 13:11 88 L 09/08/20 08:00 94 L 09/08/20 06:59 95 09/08/20 06:52 94 L 09/08/20 06:48 94 L 09/08/20 04:53 97 09/08/20 03:27 97 09/08/20 03:07 95 09/08/20 02:00 96 09/08/20 01:00 96 09/07/20 23:40 09/07/20 23:37 96 Intake and Output 09/07/20 09/08/20 09/08/20 22:59 06:59 14:59 Intake Total 560 258.71 Output Total 250 Balance 560 8.71 Intake: IV 258.71 Intake, IV Titration 440 Amount Heparin Sod,Pork in 0.45% 40 NaCl 25,000 unit In 0.45 % NaCl 1 250ml.bag @ 10. 599 UNITS/KG/HR 10 mls/hr IV .Q24H [facility] Rx#: [id number] Sodium Chloride 0.9% 1, 400 000 ml @ 100 mls/hr IV . Q10H [facility] Rx#:[id number] Oral 120 Output: Urine 250 Other: # Voids 1 1 Weight 95.9 kg PHYSICAL EXAMINATION: GENERAL: The patient is alert and oriented x3, not in any acute distress. Well developed, well nourished. HEENT: Pupils are round and equally reacting to light. EOMI. No scleral icterus. No conjunctival pallor. Normocephalic, atraumatic. No pharyngeal erythema. No thyromegaly. CARDIOVASCULAR: S1 and S2 present. No murmurs, rubs, or gallops. PULMONARY: Chest is clear to auscultation, no wheezing or crackles. ABDOMEN: Soft, nontender, nondistended, normoactive bowel sounds. No palpable organomegaly. MUSCULOSKELETAL: No joint swelling or deformity. EXTREMITIES: No cyanosis, clubbing, or pedal edema. NEUROLOGICAL: Gross neurological examination did not reveal any focal deficits. SKIN: No rashes. Results CBC & Chem 7: 09/08/20 01:56 09/08/20 00:12 Labs: Abnormal Lab Results - Last 24 Hours (Table) 09/08/20 09/08/20 09/08/20 Range/Units 00:12 00:12 00:12 WBC 12.5 H (3.8-10.6) k/uL Neutrophils # 9.7 H (1.3-7.7) k/uL APTT (22.0-30.0) sec BUN 18 H (7-17) mg/dL Glucose 124 H (74-99) mg/dL Troponin I 1.260 H* (0.000-0.034) ng/mL 09/08/20 09/08/20 09/08/20 Range/Units 01:56 06:31 06:31 WBC (3.8-10.6) k/uL Neutrophils # (1.3-7.7) k/uL APTT 55.1 H (22.0-30.0) sec BUN (7-17) mg/dL Glucose (74-99) mg/dL Troponin I 1.890 H* 2.610 H* (0.000-0.034) ng/mL Thrombosis Risk Factor Assmnt - Choose All That Apply Any of the Below Risk Factors Present?: Yes Each Factor Represents 1 point: Swollen legs (current) Other Risk Factors: Yes Each Risk Factor Represents 3 Points: Age 75 years or older Other congenital or acquired thrombophilia - If yes, enter type in comment: No Thrombosis Risk Factor Assessment Total Risk Factor Score: 4 Thrombosis Risk Factor Assessment Level: Moderate Risk Assessment and Plan Plan: -Troponin elevation, chest pain: Secondary to stress-induced cardiomyopathy areTakutsubo syndrome. Patient clinically presently doesn't appear to be volume overloaded but did receive one dose of Lasix after cardiac catheterization patient will be monitored and treated accordingly. Patient has a pleasant EF of around 25% -Systolic dysfunction, heart failure acute from stress-induced cardiomyopathy not in the pulmonary edema acute heart failure exacerbation - Major depression -Hyperlipidemia -SLE -Restless leg syndrome -History of coronary artery disease -Hypertension For above-mentioned chronic medical problems patient was resumed on appropriate home medications.
[2020-09-08] MEDS: GABAPENTIN 300 MG CAP PO SCH ×2 (15:17→22:42)
--- NOTE | 2020-09-08 15:41 | CC ---
CARDIAC CATHETERIZATION REPORT DATE OF SERVICE: 09/08/2020. PROCEDURE: 1. Left heart catheterization and coronary angiography. 2. Left ventriculography. 3. Fractional flow reserve assessment of LAD, IFR of major diagonal branch and left circumflex coronary artery. PERFORMED BY: Dr. Esperanza Perez. SEDATION: Moderate conscious sedation time was 80 minutes. The patient was administered Versed and oxygen. Legs and EKG were monitored closely. CLINICAL INFORMATION: Mr. Selena Hurt is a 74-year-old lady with a history of CAD, prior stenting of circumflex that was performed in 2005 in [place]. She also has hypertension, hyperlipidemia, and SVT for which she had an ablation performed by Dr. Fabian 2 years ago. She came to the hospital chest pain and troponin elevation and EKG showed QS pattern in precordial leads. The patient continued to have chest pain requiring morphine and sublingual nitroglycerin on multiple occasions. She was therefore advised coronary angiography after due discussion regarding risks, benefits, and options. PROCEDURE NOTE: Under local anesthesia and strict aseptic precautions, a 6-Yakut introducer was placed in the right radial artery. Using JR4.2 and JL3.5 catheters, I performed coronary angiography and the same catheter was used to check LV pressures. Following this, I performed an FFR of LAD, diagonal and circumflex using a JL3.5 6-Yakut guide catheter. I used a long ____ wire and also a run-through wire initially it and exchanged over a teleport catheter. Patient received Angiomax bolus and infusion as per protocol. CARDIAC CATHETERIZATION FINDINGS: RIGHT CORONARY ARTERY: Large dominant disease-free vessel distally bifurcates into PDA and PLV. No significant disease in the dominant RCA. LEFT MAIN CORONARY ARTERY: Long patent disease-free vessel, free of significant disease. Bifurcates into LAD and circumflex. LEFT ANTERIOR DESCENDING CORONARY ARTERY: Good caliber vessel gives off a diagonal branch and there is an eccentric area of 50% narrowing in the diagonal itself at its ostium has a 50% narrowing. LAD beyond this is of fair caliber, in distribution runs all the way to the apex supplying a sizable amount of myocardium. The diagonal is also a good caliber, fair distribution vessel. No other significant disease. There is a 50% mid LAD after the diagonal and diagonal ostium has a 50% lesion. LEFT POSTERIOR CIRCUMFLEX CORONARY ARTERY: This vessel was previously stented, stented area is patent. No more than 35% narrowing. Distally bifurcates into 2 branches, tortuous. No significant disease. LEFT VENTRICULOGRAM: This was performed in the PAYTON projection. Study reveals a left ventricle that is enlarged with akinesia of the anteroapical and inferoapical portion of left ventricle with the base of the ventricle rafiq well. The LV-gram suggests that of a takotsubo syndrome. There was evidence of some mild mitral regurgitation noted. FRACTIONAL FLOW RESERVE ASSESSMENT: For FFR I used a JL3.5 guide catheter, initially used a short FFR wire I had difficulty advancing, switched over to a run-through wire and then with the teleport catheter exchanged for the FFR wire. I performed FFR of LAD, which was normal. I also performed IFR of the diagonal as well as the circumflex. All of these were normal. Prior to the procedure, I normalized the long wire in the aorta and after an appropriate normalization and also giving nitroglycerin, the data was obtained. The FFR in LAD was 0.92. The IFR in the diagonal and circumflex was 0.95 or higher. FINAL IMPRESSION: This patient has no hemodynamically significant lesions in the LAD, diagonal or circumflex. The left ventricular end-diastolic pressure is elevated and LV-gram suggests takotsubo syndrome with ejection fraction of 25% with mild mitral regurgitation. RCA is dominant, relatively disease-free. No gradient across aortic valve. RECOMMENDATIONS: Medical therapy was advised. Patient was given some Lasix. She will be monitored closely. Findings were discussed with the patient, that she has stress cardiomyopathy type picture. I also spoke to her daughter by phone at length. I spoke to her admitting doctor, Dr. Durham. We will continue medical therapy and discharge her in 48 hours if she is stable. MMODL / IJN: [id number] /
[2020-09-08] MEDS: DULoxetine HCL 20 MG CAPSULE.DR PO SCH (20:36)
[2020-09-08] MEDS: HYDROXYCHLOROQUINE SULFATE 200 MG TAB PO SCH (20:36)
[2020-09-08] MEDS: NON FORMULARY DRUG (Cinnamon Bark [Cinnamon] 500 MG Capsule) PO SCH (20:37)
[2020-09-08] MEDS ORDERED: METOPROLOL SUCCINATE (ER) 50 MG TAB.ER.24H PO SCH (21:00)
[2020-09-09] MEDS: HEPARIN SOD,PORK IN 0.45% NACL 25,000 UNIT in 0.45% NACL 1 250ML.BAG IV SCH (00:32)
[2020-09-09 08:13] LABS: Calcium 8.8 mg/dL (8.4-10.2); Potassium 3.9 mmol/L (3.5-5.1)
[2020-09-09 08:16] LABS: Basophils % (A) 0 %; Eosinophils # (A) 0.1 k/uL (0-0.7); Eosinophils % (A) 2 %; HCT 40.9 % (34.0-46.0); Lymphocytes # (A) 1.4 k/uL (1.0-4.8); Lymphocytes % (A) 18 %; MCH 26.8 pg (25.0-35.0); MCHC 31.7 g/dL (31.0-37.0); MCV 84.3 fL (80.0-100.0); Mean Platelet Volume 7.1; Monocytes # (A) 0.7 k/uL (0-1.0); Monocytes % (A) 8 %; Neutrophils # (A) 5.2 k/uL (1.3-7.7); Neutrophils % (A) 68 %; Platelet Count 203 k/uL (150-450); RBC 4.86 m/uL (3.80-5.40); RDW 15.1 % (11.5-15.5); WBC 7.7 k/uL (3.8-10.6)
[2020-09-09] MEDS ORDERED: ASPIRIN 325 MG TAB PO SCH (09:00)
[2020-09-09] MEDS ORDERED: LISINOPRIL-HCTZ 20-12.5 MG 1 EACH TAB PO SCH (09:00)
[2020-09-09] MEDS: GABAPENTIN 300 MG CAP PO SCH ×3 (10:46→20:42)
[2020-09-09] MEDS: DULoxetine HCL 20 MG CAPSULE.DR PO SCH ×2 (10:46→20:42)
[2020-09-09] MEDS: ATORVASTATIN 40 MG TAB PO SCH (10:46)
[2020-09-09] MEDS: ASPIRIN 81 MG PO SCH (10:46)
[2020-09-09] MEDS: METOPROLOL SUCCINATE (ER) 50 MG TAB.ER.24H PO SCH (10:46)
[2020-09-09] MEDS: HYDROXYCHLOROQUINE SULFATE 200 MG TAB PO SCH ×2 (10:46→20:42)
[2020-09-09] MEDS: NON FORMULARY DRUG (Cinnamon Bark [Cinnamon] 500 MG Capsule) PO SCH ×2 (10:47→20:38)
[2020-09-09] MEDS: CALCIUM CARB-VIT D 500MG-200UN 1 EACH TAB PO SCH (10:47)
[2020-09-09] MEDS: MULTIVITAMINS, THERA 1 EACH TAB PO SCH (10:50)
[2020-09-09] MEDS ORDERED: LORATADINE 10 MG TAB PO PRN (11:43)
--- NOTE | 2020-09-09 12:01 | ECHOF ---
Referral Reason:NSTEMI MEASUREMENTS -------- HEIGHT: 165.1 cm WEIGHT: 95.7 kg BP: RVIDd: 3.5 cm (< 3.3) IVSd: 1.3 cm (0.6 - 1.1) LVIDd: 3.0 cm (3.9 - 5.3) LVPWd: 1.4 cm (0.6 - 1.1) IVSs: 1.5 cm LVIDs: 2.4 cm LVPWs: 1.6 cm LA Diam: 3.3 cm (2.7 - 3.8) LAESV Index (A-L): 29.89 ml/m Ao Diam: 3.2 cm (2.0 - 3.7) AV Cusp: 1.7 cm (1.5 - 2.6) MV EXCURSION: 16.312 mm (> 18.000) MV EF SLOPE: 69 mm/s (70 - 150) EPSS: 0.5 cm MV E Brandon: 0.47 m/s MV DecT: 283 ms MV A Brandon: 0.77 m/s MV E/A Ratio: 0.62 AR PHT: 334 ms RAP: 5.00 mmHg RVSP: 24.18 mmHg FINDINGS -------- Sinus rhythm. This was a technically adequate study. The left ventricular size is normal. There is mild concentric left ventricular hypertrophy. Overa ll left ventricular systolic function is moderately impaired with, an EF between 35 - 40 %. Pt had heart cath 09/08/20 no blockage, pt has Takotsubo. Mid anteroseptal LV wall motion is hypokinetic. Apical anterior LV wall motion is hypokinetic. Apical septum LV wall motion is hypokinetic. There is mild aortic valve sclerosis. There is mild aortic regurgitation. Mild mitral annular calcification present. Mild mitral regurgitation is present. Mild tricuspid regurgitation present. Right ventricular systolic pressure is normal at < 35 mmHg. There is no pulmonic regurgitation present. The aortic root size is normal. There is no pericardial effusion. CONCLUSIONS -------- 1. The left ventricular size is normal. 2. There is mild concentric left ventricular hypertrophy. 3. Overall left ventricular systolic function is moderately impaired with, an EF between 35 - 40 %. 4. Pt had heart cath 09/08/20 no blockage, pt has Takotsubo. 5. Mid anteroseptal LV wall motion is hypokinetic. 6. Apical anterior LV wall motion is hypokinetic. 7. Apical septum LV wall motion is hypokinetic. 8. There is mild aortic valve sclerosis. 9. There is mild aortic regurgitation. 10. Mild mitral annular calcification present. 11. Mild mitral regurgitation is present. 12. Mild tricuspid regurgitation present. 13. The aortic root size is normal. 14. There is no pericardial effusion. VISITING PROFESSOR: Jie Dumont RDCS
--- NOTE | 2020-09-09 12:22 | P.PN ---
Subjective Patient is a pleasant 74-year-old the female came in with complaints of chest pain patient did have a history of coronary artery disease. Patient did have elevated troponins of 1.26, 1.89, 2.6 and patient was complaining of chest pain again today morning because of which patient was taken to labor conciliator and they patient underwent cardiac catheterization which did not show any occlusive disease patient had clean coronaries but had a very low ejection fraction and the stress-induced cardiomyopathy. Questioning patient admits to having a lot of stress with the demise of her 4 years ago and her son recently. Patient is on antidepressants. Patient was having shortness of breath as well. 09/09/2020 Patient had an echo which showed EF of around 35-40%. Patient kidney function has worsened although patient was started on RASHARD inhibitor by cardiology will monitor the blood pressure which is presently low as well as kidney function wh ich has worsened. Constitutional: Denied any fatigue denied any fever. Cardio vascular: denied any chest pain, palpitations Gastrointestinal denied any nausea vomiting Pulmonary: Denied any shortness of breath cough Neurologic denied any new focal deficits All inpatient medications were reviewed and appropriate changes in these medications as dictated in the interval history and assessment and plan. Objective - Vital Signs Vital signs: Vital Signs Temp 98.9 F 09/09/20 08:00 Pulse 89 09/09/20 08:00 Resp 20 09/09/20 08:00 BP 91/50 09/09/20 08:00 Pulse Ox 94 L 09/09/20 08:00 Intake & Output 09/08/20 09/09/20 09/09/20 18:59 06:59 18:59 Intake Total 680.71 480 Output Total 950 200 300 Balance -269.29 -200 180 Weight 92.8 kg Intake: IV 258.71 Intake, IV Titration 200 Amount Sodium Chloride 0.9% 1, 200 000 ml @ 50 mls/hr IV . Q20H [facility] Rx#:[id number] Oral 222 480 Output: Urine 950 200 300 Other: Voiding Method Toilet # Voids 2 - Exam PHYSICAL EXAMINATION: GENERAL: The patient is alert and oriented x3, not in any acute distress. Well developed, well nourished. HEENT: Pupils are round and equally reacting to light. EOMI. No scleral icterus. No conjunctival pallor. Normocephalic, atraumatic. No pharyngeal erythema. No thyromegaly. CARDIOVASCULAR: S1 and S2 present. No murmurs, rubs, or gallops. PULMONARY: Chest is clear to auscultation, no wheezing or crackles. ABDOMEN: Soft, nontender, nondistended, normoactive bowel sounds. No palpable organomegaly. MUSCULOSKELETAL: No joint swelling or deformity. EXTREMITIES: No cyanosis, clubbing, or pedal edema. NEUROLOGICAL: Gross neurological examination did not reveal any focal deficits. SKIN: No rashes. - Labs CBC & Chem 7: 09/09/20 07:36 09/09/20 07:36 Labs: Abnormal Lab Results - Last 24 Hours (Table) 09/09/20 Range/Units 07:36 BUN 21 H (7-17) mg/dL Creatinine 1.41 H (0.52-1.04) mg/dL Glucose 105 H (74-99) mg/dL Assessment and Plan Plan: -Troponin elevation, chest pain: Secondary to stress-induced cardiomyopathy areTakutsubo syndrome. Patient clinically presently doesn't appear to be volume overloaded but did receive one dose of Lasix after cardiac catheterization patient will be monitored and treated accordingly. Patient has a pleasant EF 30-35%., Patient was started on RASHARD inhibitor monitor kidney function. -Systolic dysfunction, heart failure acute from stress-induced cardiomyopathy not in the pulmonary edema acute heart failure exacerbation - Major depression -Hyperlipidemia -SLE -Restless leg syndrome -History of coronary artery disease -Hypertension For above-mentioned chronic medical problems patient was resumed on appropriate home medications.
--- NOTE | 2020-09-09 13:43 | P.PN ---
Subjective Patient is seen and examined sitting up in bed in no acute distress. She has no symptoms of chest discomfort, shortness of breath, dizziness or palpitations. Blood pressure 116/69 heart rate 88 afebrile maintaining oxygen saturation on room air. Laboratory data reviewed, CBC unremarkable, sodium 138, potassium 3.9, creatinine 1.4. Currently maintained on aspirin 81 mg daily, atorvastatin 40 mg daily, lisinopril/hydrochlorothiazide 20/25 mg daily and Toprol 50 mg at bedtime. Echocardiogram obtained reveals impaired LV systolic function with ejection fraction 35-40%, mid anterior septal all the wall motion hypokinesia, apical anterior, apical septal LV wall motion hypokinesia, mild MR and mild TR. She underwent cardiac catheterization yesterday revealing 50% narrowing of the ostial diagonal branch, 50% mid LAD plaque, previously stented area of the circumflex was patent with 35% narrowing noted, RCA is a large dominant disease-free vessel. FFR of the LAD and circumflex were unremarkable. GENERAL: Well-appearing, well-nourished and in no acute distress. NECK: Supple without JVD or thyromegaly. LUNGS: Breath sounds clear to auscultation bilaterally. Respiration equal and unlabored. No wheezes, rales or rhonchi. HEART: Regular rate and rhythm without murmurs, rubs or gallops. S1 and S2 heard. EXTREMITIES: Normal range of motion, no edema. No clubbing or cyanosis. Peripheral pulses intact. ASSESSMENT Non-ST elevated myocardial infarction Takotsubo Non-ischemic cardiomyopathy Coronary artery disease s/p PCI circumflex 2005 Hypertension Dyslipidemia History of SVT s/p ablation PLAN Blood pressures have been borderline, although she is asymptomatic. We will discontinue hydrochlorothiazide and decrease lisinopril to 5 mg at bedtime. Change toprol to be given in the morning. Check for adenovirus, parvovirus and coxsackie. Hydrate the patient for 6 hours. Repeat BMP and magnesium in the morning. Nurse Practitioner note has been reviewed, I agree with a documented findings and plan of care. Patient was seen and examined. Objective - Vital Signs Vital signs: Vital Signs Temp 98.9 F 09/09/20 08:00 Pulse 80 09/09/20 12:30 Resp 20 09/09/20 12:30 BP 116/69 09/09/20 12:30 Pulse Ox 94 L 09/09/20 12:30 Intake & Output 09/08/20 09/09/20 09/09/20 18:59 06:59 18:59 Intake Total 680.71 480 Output Total 950 200 600 Balance -269.29 -200 -120 Weight 92.8 kg Intake: IV 258.71 Intake, IV Titration 200 Amount Sodium Chloride 0.9% 1, 200 000 ml @ 100 mls/hr IV . Q10H [facility] Rx#:[id number] Oral 222 480 Output: Urine 950 200 600 Other: Voiding Method Toilet # Voids 2 - Labs CBC & Chem 7: 09/09/20 07:36 09/09/20 07:36 Labs: Abnormal Lab Results - Last 24 Hours (Table) 09/09/20 Range/Units 07:36 BUN 21 H (7-17) mg/dL Creatinine 1.41 H (0.52-1.04) mg/dL Glucose 105 H (74-99) mg/dL
[2020-09-09] MEDS ORDERED: SODIUM CHLORIDE 0.9% 1,000 ML IV SCH (13:45)
[2020-09-09] MEDS: HYDROcodone/APAP 10-325MG 1 EACH TAB PO PRN ×2 (14:40→22:53)
[2020-09-09] MEDS ORDERED: MELATONIN 5 MG TABLET PO SCH (21:00)
[2020-09-09] MEDS ORDERED: lisinopriL 5 MG TAB PO SCH (21:00)
[2020-09-10 03:54] VITALS: PULSE 79
[2020-09-10 07:50] LABS: Basophils % (A) 1 %; Eosinophils # (A) 0.4 k/uL (0-0.7); Eosinophils % (A) 6 %; HGB 11.6 gm/dL (11.4-16.0); Hypochromasia Slight; Lymphocytes # (A) 1.2 k/uL (1.0-4.8); Lymphocytes % (A) 19 %; MCH 26.7 pg (25.0-35.0); MCHC 31.4 g/dL (31.0-37.0); MCV 85.1 fL (80.0-100.0); Mean Platelet Volume 7.3; Monocytes # (A) 0.6 k/uL (0-1.0); Monocytes % (A) 9 %; Neutrophils % (A) 61 %; Platelet Count 171 k/uL (150-450); RBC 4.35 m/uL (3.80-5.40); RDW 15.1 % (11.5-15.5); WBC 6.5 k/uL (3.8-10.6)
[2020-09-10 08:04] LABS: Calcium 8.3 mg/dL (8.4-10.2); Magnesium 1.8 mg/dL (1.6-2.3); Potassium 3.7 mmol/L (3.5-5.1)
[2020-09-10 09:16] VITALS: BP 112/59; RESP 17; TEMP 98.1
[2020-09-10] MEDS: ATORVASTATIN 40 MG TAB PO SCH (10:06)
--- NOTE | 2020-09-10 10:24 | P.DS ---
Providers Date of admission: 09/08/20 01:51 Attending physician: Joo Salguero Consults: 09/08/20 01:51 Consult Physician Urgent Consulting Provider: Savi Perez Consult Reason/Comments: Acute coronary syndrome. Elevated troponin. Do you want consulting provider notified?: Already Contacted Primary care physician: [facility] Course: Patient is a pleasant 74-year-old the female came in with complaints of chest pain patient did have a history of coronary artery disease. Patient did have elevated troponins of 1.26, 1.89, 2.6 and patient was complaining of chest pain again today morning because of which patient was taken to label designer and they patient underwent cardiac catheterization which did not show any occlusive disease patient had clean coronaries but had a very low ejection fraction and the stress-induced cardiomyopathy. Questioning patient admits to having a lot of stress with the demise of her 4 years ago and her son recently. Patient is on antidepressants. Patient was having shortness of breath as well. 09/09/2020 Patient had an echo which showed EF of around 35-40%. Patient kidney function has worsened although patient was started on RASHARD inhibitor by cardiology will monitor the blood pressure which is presently low as well as kidney function which has worsened. 09/10/2020 Patient is clinically doing well euvolemic at this time improved serum creat inine improved blood pressure patient will be discharged on a small dose of RASHARD inhibitor is not requiring any diuretics at this time patient will closely follow up with cardiology and PCP as an outpatient. PHYSICAL EXAMINATION: GENERAL: The patient is alert and oriented x3, not in any acute distress. Well developed, well nourished. HEENT: Pupils are round and equally reacting to light. EOMI. No scleral icterus. No conjunctival pallor. Normocephalic, atraumatic. No pharyngeal erythema. No thyromegaly. CARDIOVASCULAR: S1 and S2 present. No murmurs, rubs, or gallops. PULMONARY: Chest is clear to auscultation, no wheezing or crackles. ABDOMEN: Soft, nontender, nondistended, normoactive bowel sounds. No palpable organomegaly. MUSCULOSKELETAL: No joint swelling or deformity. EXTREMITIES: No cyanosis, clubbing, or pedal edema. NEUROLOGICAL: Gross neurological examination did not reveal any focal deficits. SKIN: No rashes. Assessment and Plan Plan: -Troponin elevation, chest pain: Secondary to stress-induced cardiomyopathy areTakutsubo syndrome. . Patient has a pleasant EF 30-35%.improved creatinine patient will be discharged today. -Systolic dysfunction, heart failure acute from stress-induced cardiomyopathy not in the pulmonary edema acute heart failure exacerbation - Major depression -Hyperlipidemia -SLE -Restless leg syndrome -History of coronary artery disease -Hypertension Plan - Discharge Summary Discharge Rx Participant: No New Discharge Prescriptions: New Atorvastatin [Lipitor] 40 mg PO HS #30 tab lisinopriL [Zestril] 5 mg PO HS #30 tab Continue Acetaminophen [Tylenol Extra Strength] 500 mg PO TID Ubidecarenone [Co Q-10] 200 mg PO DAILY L.acidoph,Paracasei, B.lactis [Probiotic] 1 cap PO BID Cinnamon Bark [Cinnamon] 500 mg PO BID Cholecalciferol [Vitamin D3 (25 Mcg = 1000 Iu)] 1,000 unit PO BID Ascorbic Acid [Vitamin C] 500 mg PO BID Multivitamins, Thera [Multivitamin (formulary)] 1 tab PO DAILY Flaxseed Oil [Ke[place]ie-3 Flaxseed Oil] 1,000 mg PO DAILY Ke[place]ie-3/Dha/Epa/Fish Oil [Fish Oil 500 mg Softgel] 1 cap PO DAILY Hydrocodone/Acetaminophen [Hydrocodone/Acetaminophen 10-325] 1 tab PO QID Metoprolol Succinate [Toprol XL] 50 mg PO DAILY diphenhydrAMINE [Benadryl] 25 - 50 mg PO HS PRN PRN Reason: Insomnia Hydroxychloroquine Sulfate [Plaquenil] 200 mg PO BID Cyclobenzaprine [Flexeril] 10 mg PO HS DULoxetine HCL [Cymbalta] 20 mg PO BID Gabapentin 600 mg PO TID Trolamine Salicylate/Aloe Vera [Aspercreme 10% Cream] 1 applic TOPICAL DAILY PRN PRN Reason: Pain Aspirin [Adult Low Dose Aspirin EC] 81 mg PO BID Discontinued Triamterene-Hctz 37.5-25Mg [Dyazide 37.5-25 Capsule] 1 cap PO DAILY Irbesartan 300 mg PO DAILY Atorvastatin [Lipitor] 20 mg PO HS Discharge Medication List Acetaminophen [Tylenol Extra Strength] 500 mg PO TID 12/17/17 [History] Ascorbic Acid [Vitamin C] 500 mg PO BID 12/17/17 [History] Cholecalciferol [Vitamin D3 (25 Mcg = 1000 Iu)] 1,000 unit PO BID 12/17/17 [H istory] Cinnamon Bark [Cinnamon] 500 mg PO BID 12/17/17 [History] Flaxseed Oil [[place]ie-3 Flaxseed Oil] 1,000 mg PO DAILY 12/17/17 [History] Hydrocodone/Acetaminophen [Hydrocodone/Acetaminophen 10-325] 1 tab PO QID 12/17/17 [History] L.acidoph,Paracasei, B.lactis [Probiotic] 1 cap PO BID 12/17/17 [History] Metoprolol Succinate [Toprol XL] 50 mg PO DAILY 12/17/17 [History] Multivitamins, Thera [Multivitamin (formulary)] 1 tab PO DAILY 12/17/17 [History] Ke[place]ie-3/Dha/Epa/Fish Oil [Fish Oil 500 mg Softgel] 1 cap PO DAILY 12/17/17 [History] Ubidecarenone [Co Q-10] 200 mg PO DAILY 12/17/17 [History] Aspirin [Adult Low Dose Aspirin EC] 81 mg PO BID 09/08/20 [History] Cyclobenzaprine [Flexeril] 10 mg PO HS 09/08/20 [History] DULoxetine HCL [Cymbalta] 20 mg PO BID 09/08/20 [History] Gabapentin 600 mg PO TID 09/08/20 [History] Hydroxychloroquine Sulfate [Plaquenil] 200 mg PO BID 09/08/20 [History] Trolamine Salicylate/Aloe Vera [Aspercreme 10% Cream] 1 applic TOPICAL DAILY PRN 09/08/20 [History] diphenhydrAMINE [Benadryl] 25 - 50 mg PO HS PRN 09/08/20 [History] Atorvastatin [Lipitor] 40 mg PO HS #30 tab 09/10/20 [Rx] lisinopriL [Zestril] 5 mg PO HS #30 tab 09/10/20 [Rx] Follow up Appointment(s)/Referral(s): Ricardo Fabian MD [STAFF PHYSICIAN] - 1 Week (Office will call you with a follow up appointment. ) Gerard Askew MD [Primary Care Provider] - 09/23/20 9:30 am (Earliest available appointment with Dr. Askew.) Patient Instructions/Handouts: Heart Healthy Diet (DC), Hypotension (DC), After Radial Heart Catheterization (GEN) Activity/Diet/Wound Care/Special Instructions: CARDIAC CATH 1. Support your puncture site by applying firm, steady pressure whenever you cough, laugh, sneeze or bear down to have a bowel movement (2-day restriction). 2. Watch for any excessive bruising, active bleeding, a firm knot forming under your skin, extreme tenderness and signs of infection (redness, swelling, fever). 3. Shower daily, do not soak puncture in a tub bath, jacuzzi, pool, jennings etc. for 1 week. This is to prevent risk of infection. 4. Drink plenty of fluids the day of and day after your procedure to flush co ntrast dye out of your kidneys. 5. Take all medications as directed. Never stop any new medication without your physicians OK. 6. No driving for 2 days after procedure. 7. 10- pound weight lifting restriction for 1 week. 8. Low sodium/low fat diet. 9. Activity limited until follow up appointment with your fire production operator. In case of any problems, please call [facility] [place] @ [phone]. Discharge Disposition: HOME SELF-CARE
[2020-09-10] MEDS: ASPIRIN 81 MG PO SCH (10:34)
[2020-09-10] MEDS: CALCIUM CARB-VIT D 500MG-200UN 1 EACH TAB PO SCH (10:34)
[2020-09-10] MEDS: DULoxetine HCL 20 MG CAPSULE.DR PO SCH (10:34)
[2020-09-10] MEDS: HYDROXYCHLOROQUINE SULFATE 200 MG TAB PO SCH (10:35)
[2020-09-10] MEDS: GABAPENTIN 300 MG CAP PO SCH (10:35)
[2020-09-10] MEDS: METOPROLOL SUCCINATE (ER) 50 MG TAB.ER.24H PO SCH (10:35)
[2020-09-10] MEDS: MULTIVITAMINS, THERA 1 EACH TAB PO SCH (10:36)
[2020-09-10] MEDS: NON FORMULARY DRUG (Cinnamon Bark [Cinnamon] 500 MG Capsule) PO SCH (10:53)
--- NOTE | 2020-09-10 12:34 | P.PN ---
Subjective Patient is seen and examined sitting up in bed in no acute distress. She has been up ambulating around the room and back and forth to the bathroom. She has no symptoms of exertional chest discomfort or shortness of breath. She also denies any palpitations or dizziness. Blood pressure 112/59 heart rate 79 afebrile maintaining oxygen saturation on room air. Laboratory data reviewed, CBC unremarkable, sodium 139, potassium 3.7, creatinine 0.9 and magnesium 1.8. GENERAL: Well-appearing, well-nourished and in no acute distress. NECK: Supple without JVD or thyromegaly. LUNGS: Breath sounds clear to auscultation bilaterally. Respiration equal and unlabored. No wheezes, rales or rhonchi. HEART: Regular rate and rhythm without murmurs, rubs or gallops. S1 and S2 heard. EXTREMITIES: Normal range of motion, no edema. No clubbing or cyanosis. Peripheral pulses intact. ASSESSMENT Non-ST elevated myocardial infarction Takotsubo Non-ischemic cardiomyopathy Coronary artery disease s/p PCI circumflex 2005 Hypertension Dyslipidemia History of SVT s/p ablation PLAN Stable from a cardiac perspective. Discharge medications discussed in detail with the patient. Follow-up in the office with Dr. Guillen in one week. Nurse Practitioner note has been reviewed, I agree with a documented findings and plan of care. Patient was seen and examined. Objective - Vital Signs Vital signs: Vital Signs Temp 98.1 F 09/10/20 09:09 Pulse 79 09/10/20 03:52 Resp 17 09/10/20 09:30 BP 112/59 09/10/20 09:09 Pulse Ox 94 L 09/10/20 03:52 Intake & Output 09/09/20 09/10/20 09/10/20 18:59 06:59 18:59 Intake Total 1020 240 Output Total 600 620 Balance 420 -380 Weight 92.8 kg Intake: Intake, IV Titration 300 Amount Sodium Chloride 0.9% 1, 300 000 ml @ 100 mls/hr IV . Q10H [facility] Rx#:[id number] Oral 720 240 Output: Urine 600 620 Other: # Voids 1 - Labs CBC & Chem 7: 09/10/20 07:12 09/10/20 07:12 Labs: Abnormal Lab Results - Last 24 Hours (Table) 09/10/20 Range/Units 07:12 BUN 24 H (7-17) mg/dL Calcium 8.3 L (8.4-10.2) mg/dL
[2020-09-12 14:05] LABS: Parvovirus B-19 IgM Antibodies 0.11 INDEX (<=0.90)
[2020-09-12 14:06] LABS: Parvovirus B-19 IgG Antibodies 4.56 INDEX (<=0.90)
[2020-09-16 16:17] LABS: Echovirus AB Type 11 <1:10 (<1:10); Echovirus AB Type 6 <1:10 (<1:10); Echovirus AB Type 7 <1:10 (<1:10); Echovirus AB Type 9 1:40 (<1:10)
== END 2020-09-10 11:52 | disposition home or self-care (01) ==
LOC: EC 23:35 → 3SCARD 09-08 01:51
PROVIDERS: ADMIT Hospitalist; ATTEND Hospitalist
DX: I21.4 Non-ST elevation (NSTEMI) myocardial infarction (principal); I25.10 Atherosclerotic heart disease of native coronary artery without angina pectoris; I77.1 Stricture of artery; I34.0 Nonrheumatic mitral (valve) insufficiency; E66.9 Obesity, unspecified; Z68.33 Body mass index [BMI] 33.0-33.9, adult; I51.81 Takotsubo syndrome; I50.21 Acute systolic (congestive) heart failure; Z77.22 Contact with and (suspected) exposure to environmental tobacco smoke (acute) (chronic); M79.7 Fibromyalgia; F32.9 Major depressive disorder, single episode, unspecified; J44.9 Chronic obstructive pulmonary disease, unspecified; M79.89 Other specified soft tissue disorders; E78.5 Hyperlipidemia, unspecified; M32.9 Systemic lupus erythematosus, unspecified; G25.81 Restless legs syndrome; I25.2 Old myocardial infarction; E78.00 Pure hypercholesterolemia, unspecified; N83.209 Unspecified ovarian cyst, unspecified side; Z95.5 Presence of coronary angioplasty implant and graft; Z96.653 Presence of artificial knee joint, bilateral; Z90.710 Acquired absence of both cervix and uterus; Z98.890 Other specified postprocedural states; Z85.820 Personal history of malignant melanoma of skin; Z87.442 Personal history of urinary calculi; Z87.19 Personal history of other diseases of the digestive system; Z79.82 Long term (current) use of aspirin; Z79.891 Long term (current) use of opiate analgesic; Z79.899 Other long term (current) drug therapy; Z88.8 Allergy status to other drugs, medicaments and biological substances; Z91.09 Other allergy status, other than to drugs and biological substances
CPT/HCPCS: 96375; 93005 ×4; 96376; 96365; 99285; 36415; 93306; 93571; 93572; 93458; 86747 ×2; 85379; 86658 ×2; 80061; 80053; 80048 ×2; 82150; 83690; 83735 ×2; 84484; 85025 ×3; 85610; 85730 ×2; 71046; G0378 ×3; C1887; C1769 ×3; C1894; J2250; J1644 ×2; J1940; J2405; J2001; J0583; J0153; J1170; Q9967